=== PATIENT | male | born 1995 | race Asian ===

== ENCOUNTER 2018-05-09 14:58 | Emergency (ER) | payer OTHER ==
--- NOTE | 2018-05-09 15:46 | ED ---
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 He states he is up-to-date with all of his immunizations. Denies any pain. Bleeding is well-controlled on arrival. Denies any numbness or tingling, color or temperature changes. He is otherwise healthy and takes no medications. - History of Current Complaint Stated Complaint: RT FINGER LAC Time Seen by Provider: 05/09/18 15:15 Hx Obtained From: Patient Mechanism of Injury: Sharp/Blunt Trauma Onset/Duration: Sudden Onset Aggravating: Movement Alleviating: Compression Timing: Constant Onset Severity: Mild Current Severity: None Pain Intensity: 0 Pain Scale Used: 0-10 Numeric Related Hx: Dominant Hand (Right) - Allergy/Home Medications Allergies/Adverse Reactions: Allergies Allergy/AdvReac Type Severity Reaction Status Date / Time No Known Allergies Allergy Unknown Verified 05/09/18 15:11 Reaction Details Home Medications: Home Medications NK [No Home Medications Reported] 05/09/18 [History Confirmed 05/09/18] PMH/Surg Hx/FS Hx/Imm Hx Previously Healthy: Yes - Immunization History Hx Pertussis Vaccination: No Immunizations Up to Date: Unable to Obtain/Confirm Infectious Disease History: No Infectious Disease History: Denies: Traveled Outside the [place] in Last 30 Days - Social History Occupation: Employed Part-time Lives: Dormitory/Roommates Alcohol Use: None Hx Substance Use: No Substance Use Type: Reports: None Hx Tobacco Use: No Smoking Status (MU): Never Smoked Tobacco Review of Systems Constitutional: Negative Negative: Fever, Chills, Fatigue, Skin Diaphoresis Negative: Palpitations, Chest Pain Negative: no symptoms reported, see HPI Negative: Arthralgia, Myalgia Positive: Other - laceration. Negative: Rash, Bruising Psychological: Normal All Other Systems Reviewed And Are Negative: Yes Physical Exam Triage Information Reviewed: Yes Vital Signs On Initial Exam: Initial Vitals Temp Pulse Resp BP Pulse Ox 98.9 F 89 20 110/68 96 05/09/18 15:06 05/09/18 15:06 05/09/18 15:06 05/09/18 15:06 05/09/18 15:06 Vital Signs Reviewed: Yes Appearance: Positive: Well-Appearing, Well-Nourished Skin: Positive: Warm, Skin Color Reflects Adequate Perfusion, Other - 1cm laceration distal tip right finger - palmar side Head/Face: Positive: Normal Head/Face Inspection Neck: Positive: Supple, No Lymphadenopathy Respiratory/Lung Sounds: Positive: Clear to Auscultation, Breath Sounds Present Cardiovascular: Positive: RRR, Pulses are Symmetrical in both Upper and Lower Extremities Musculoskeletal: Positive: Normal, Strength/ROM Intact Neurological: Positive: Sensory/Motor Intact, Speech Normal Psychiatric: Positive: Normal, Affect/Mood Appropriate Diagnostics - Vital Signs Vital Signs Temp Pulse Resp BP Pulse Ox 05/09/18 15:06 98.9 F 89 20 110/68 96 - Laboratory Lab Statement: Any lab studies that have been ordered have been reviewed, and results considered in the medical decision making process. Laceration Repair Course/Dx - Course Course Of Treatment: Patient is treated for a laceration to the distal tip of the right index finger. Laceration is approximately 1 cm in length and superficial. Time out obtained. 0.5 mL lidocaine used as local anesthetic with good effect using digital block. 3 sutures placed using Prolene 4-0. Patient tolerated well. Suture removal in 5-7 days. Tetanus and other immunizations are all ready up-to-date. - Clinical Impression Provider Diagnoses: Laceration Discharge - Sign-Out/Discharge Documenting (check all that apply): Discharge/Admit/Transfer - Discharge Plan Condition: Stable Disposition: HOME Patient Education Materials: Care For Your Stitches (ED) Additional Instructions: Leave brown bandage on for 2 hours Leave white bandage on for 24 hours You may change the bandage at that time with over the counter gauze Leave open to air as much as possible Sutures out in 5-7 days - Billing Disposition and Condition Condition: STABLE Disposition: Home
[2018-05-09 15:53] VITALS: BP 121/77
== END 2018-05-09 15:52 | disposition home or self-care (01) ==
LOC: EDBD → ED 14:58
DX: S61.210A Laceration without foreign body of right index finger without damage to nail, initial encounter (principal); W26.0XXA Contact with knife, initial encounter; Y92.89 Other specified places as the place of occurrence of the external cause
CPT/HCPCS: 12001; 99282